=== PATIENT | female | born 1995 | race Two or more races ===

== ENCOUNTER 2017-06-24 17:19 | Emergency (ER) | payer OTHER ==
[2017-06-24] MEDS ORDERED: Ondansetron INJ* 2 MG/ML VIAL IV ONE (17:49)
[2017-06-24] MEDS ORDERED: NS 0.9% 1000 ML* 1,000 ML IV ONE ×2 (17:49→18:56)
--- NOTE | 2017-06-24 18:01 | UC ---
Substance Abuse HPI - HPI Summary HPI Summary: Brought by police for etoh intoxication. Pt was unable to walk, + vomiting. Pt alert, oriented, admits to etoh, denies illegal drug use. Denies other sx, SI. Med hx = asthma. - History Of Current Complaint Chief Complaint: EDSubstanceAbuse Stated Complaint: ETOH Time Seen by Provider: 06/24/17 17:46 Hx Obtained From: Patient Onset Of Abuse Is Stated In: Hours Severity Initially: Moderate Severity Currently: Mild Associated Signs And Symptoms: Positive: Vomiting - Allergies/Home Medications Allergies/Adverse Reactions: Allergies Allergy/AdvReac Type Severity Reaction Status Date / Time No Known Allergies Allergy Verified 06/24/17 17:25 Home Medications: Home Medications Unobtainable [Unobtainable] 06/24/17 [History Confirmed 06/24/17] PMH/Surg Hx/FS Hx/Imm Hx - Social History Alcohol Use: Occasionally Substance Use Type: None Smoking Status (MU): Never Smoked Tobacco Review of Systems Constitutional: Negative Skin: Negative Eyes: Negative ENT: Negative Respiratory: Negative Cardiovascular: Negative Gastrointestinal: Vomiting Genitourinary: Negative Motor: Negative Neurovascular: Negative Musculoskeletal: Negative Neurological: Negative Psychological: Negative Is Patient Immunocompromised?: No All Other Systems Reviewed And Are Negative: Yes Physical Exam Triage Information Reviewed: Yes Appearance: Well-Appearing Vital Signs: Initial Vital Signs Pulse 107 06/24/17 17:16 BP 94/51 06/24/17 17:16 Pulse Ox 98 06/24/17 17:16 Vital Signs Reviewed: Yes Eye Exam: Normal Neck exam: Normal Respiratory Exam: Normal Cardiovascular Exam: Normal Abdominal Exam: Normal Musculoskeletal Exam: Normal Neurological Exam: Normal Psychological Exam: Normal Skin Exam: Normal Re-Evaluation - Re-Evaluation 1 Re-Evaluation Time: 21:39 Change: Improved Comment: EtOH likely around 180, but Patient clinically sober. Answers all questions coherently and appropriately. Ambulates normally. Patient on her own performed a standing twirl without any loss of balance. No longer vomiting. Will be released to a friend who is over 18 and sober. Substance Abuse Course/Dx - Course Course Of Treatment: per etoh level d/c at 00:30 hrs if clinically sober. - Differential Dx/Diagnosis Clinic Physician Diagnoses: Alcohol intoxication Discharge - Sign-Out/Discharge Documenting (check all that apply): Discharge/Admit/Transfer - Discharge Plan Condition: Stable Disposition: HOME Patient Education Materials: Alcohol Intoxication (ED) - Billing Disposition and Condition Condition: STABLE Disposition: HOME
[2017-06-24 19:32] LABS: EGFR Non-African American 128.8 (>60)
[2017-06-24 20:48] LABS: Hematocrit 35 % (35-47); Hemoglobin 11.8 g/dl (12.0-16.0); Mean Corpuscular HGB Conc 33 g/dl (31-36); Mean Corpuscular Hemoglobin 29 pg (27-31); Mean Corpuscular Volume 88 fL (80-97); Mean Platelet Volume 8.3 um3 (7.4-10.4); Platelet Count 322 10^3/ul (150-450); Red Blood Count 4.02 10^6/ul (4.0-5.4); Red Cell Distribution Width 14 % (10.5-15); White Blood Count 10.6 10^3/ul (3.5-10.8)
[2017-06-24 22:03] VITALS: BP 95/62
== END 2017-06-24 22:01 | disposition home or self-care (01) ==
LOC: ED 17:19
DX: F10.129 Alcohol abuse with intoxication, unspecified (principal)
CPT/HCPCS: 36415; 80053; 80320; 85027; 96360; 96374; 99283; G0480; J2405